=== PATIENT | female | born 1950 | race Caucasian/White ===

== ENCOUNTER 2021-04-15 17:09 | Emergency (ER) | payer MEDICARE, OTHER ==
--- NOTE | 2021-04-15 17:48 | ERPHSYRPT ---
- History of Present Illness Time Seen by Provider: 04/15/21 17:15 Source: patient, other Exam Limitations: no limitations Patient Subjective Stated Complaint: upper/mid back pain x 8 days Triage Nursing Assessment: pt to ED c/o upper/mid back pain onset last wednesday after recieving COVID booster. pt states her pain began after injection but she also was doing some work around the home which also could have contributed to her pain. rates 4/10 currently but reports it increases with movement and activities. ambulatory with steady gate per self. pt was at Dr Funes office and states she was walking and o2 decreased in office, which is why pcp sent her here. hx COPD but does not wear supplemental O2. Physician History: 71 years old female presented to the ER from primary care office with chief complaint of shoulder blade area pain and difficulty breathing for almost 1 week after receiving booster dose of COVID-19 vaccine. Patient reports she started to have bilateral upper arm/back pain which is more with activity and better with resting. Denies any anterior chest pain. Pain is aggravated with movement s of arms as well. Patient was earlier at PCP office and has oxygen saturation of 97% at resting and with ambulation dropped to 84%. She is currently satting around 99% at room air and has minimal upper back discomfort. Denies any history of pulmonary embolism or aortic aneurysm. Denies any history of coronary artery disease but does have history of COPD. No fever chills or cough reported. Timing/Duration: week(s) (1), intermittent, gradual onset, worse Activities at Onset: activity Severity of Dyspnea-Max: moderate Severity of Dyspnea-Current: none Possible Cause: unknown cause Modifying Factors: Improves With: rest. Worsens With: activity Associated Symptoms: chest pain/discomfort, tightness, No painful breathing, No productive cough Allergies/Adverse Reactions: No Known Drug Allergies Allergy (Verified 04/15/21 17:14) Home Medications: ALPRAZolam 1 MG [Xanax 1 mg] 1 mg PO Q6HPRN PRN 05/11/13 [History] Citalopram Hydrobromide 20 mg* [ceLEXa 20 MG] 20 mg PO DAILY 05/11/13 [History] Hydrocodone/APAP 10/325 mg [[place] 10/325 MG TableT] 1 tab PO Q6HPRN PRN 05/11/13 [History] Hx Tetanus, Diphtheria Vaccination/Date Given: No Hx Influenza Vaccination/Date Given: Yes Hx Pneumococcal Vaccination/Date Given: No Immunizations Up to Date: No Travel Risk - International Travel Have you traveled outside of the country in past 3 weeks: No - Coronavirus Screening Are you exhibiting any of the following symptoms?: No Close contact with a COVID-19 positive Pt in past 14-21 Days: No - Vaccine Status Have you recieved a Covid-19 vaccination: Yes 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: [employer] - Vaccination Dates Date of 2cond Vaccination (if applicable): AUGUST Comment: BOOSTER 1 WEEK AGO - Review of Systems Constitutional: No Symptoms Eyes: No Symptoms Ears, Nose, & Throat: No Symptoms Respiratory: Dyspnea Cardiac: Chest Pain Abdominal/Gastrointestinal: No Symptoms Genitourinary Symptoms: No Symptoms Musculoskeletal: Myalgias Skin: No Symptoms Neurological: No Symptoms Psychological: No Symptoms Endocrine: No Symptoms Hematologic/Lymphatic: No Symptoms Immunological/Allergic: No Symptoms - Past Medical History Pertinent Past Medical History: Yes Neurological History: No Pertinent History ENT History: No Pertinent History Cardiac History: No Pertinent History Respiratory History: COPD, Sleep Apnea Endocrine Medical History: No Pertinent History Musculoskeletal History: Other GI Medical History: No Pertinent History History: No Pertinent History Psycho-Social History: Anxiety, Depression Female Reproductive Disorders: No Pertinent History - Past Surgical History Past Surgical History: Yes Neuro Surgical History: No Pertinent History Cardiac: No Pertinent History Respiratory: No Pertinent History Gastrointestinal: No Pertinent History Genitourinary: No Pertinent History Musculoskeletal: No Pertinent History Female Surgical History: No Pertinent History Other Surgical History: abcess tooth lanced - Social History Smoking Status: Never smoker How long have you smoked: 6 months Exposure to second hand smoke: Yes Drug Use: none Patient Lives Alone: No - Female History Hx Now: No - Nursing Vital Signs Nursing Vital Signs: Initial Vital Signs Temperature 97.2 F 04/15/21 17:16 Pulse Rate 83 04/15/21 17:16 Respiratory Rate 18 04/15/21 17:16 Blood Pressure 158/76 04/15/21 17:16 O2 Sat by Pulse Oximetry 98 04/15/21 17:16 Pain Scale Pain Intensity 3 - Physical Exam General Appearance: no apparent distress, alert Eye Exam: PERRL/EOMI, eyes nml inspection Ears, Nose, Throat Exam: hearing grossly normal, normal ENT inspection Neck Exam: normal inspection, non-tender, supple, full range of motion Respiratory Exam: normal breath sounds, lungs clear Cardiovascular/Chest Exam: normal heart sounds, regular rate/rhythm, other (Upper chest back pain, reproducible with palpation more on the right side.) Abdominal/Gastrointestinal Exam: soft, normal bowel sounds, No tenderness Extremity Exam: non-tender, normal range of motion, normal inspection, normal capillary refill Neurologic Exam: alert, oriented x 3, cooperative Skin Exam: normal color, warm SpO2 Interpretation: normal SpO2: 98 O2 Delivery: Room Air - Course EKG Interpreted by Me: RATE (76), Sinus Rhythm, NORMAL AXIS, NORMAL INTERVALS, Non-specific ST Changes Ordered Tests: Active Orders 24 hr Category Date Time Status EKG-ER Only STAT Care 04/15/21 17:37 Active IV Insertion STAT Care 04/15/21 17:37 Active CHEST WITH CONTRAST [CT] Stat Exams 04/15/21 20:07 Taken CBC W DIFF Stat Lab 04/15/21 17:37 Completed CMP Stat Lab 04/15/21 18:56 Completed MAGNESIUM Stat Lab 04/15/21 17:37 Completed NT PRO BNP Stat Lab 04/15/21 17:37 Completed TROPONIN Q3H Lab 04/15/21 17:45 Completed TROPONIN Q3H Lab 04/15/21 20:20 Completed TROPONIN Q3H Lab 04/15/21 23:45 Ordered TROPONIN Q3H Lab 04/16/21 02:45 Ordered TROPONIN Q3H Lab 04/16/21 05:45 Ordered Medication Summary Discontinued Medications Generic Name Dose Route Start Last Admin Trade Name Freq PRN Reason Stop Dose Admin Hydromorphone HCl 0.5 mg 04/15/21 17:44 04/15/21 18:17 Hydromorphone 1 Mg/1ml Inj 1 Mg/Ml Syringe IV 04/15/21 17:45 Not Given STAT ONE Ketorolac Tromethamine 30 mg 04/15/21 18:18 04/15/21 18:20 Ketorolac Tromethamine 30 Mg/Ml Inj IV 04/15/21 18:19 30 mg STAT ONE Administration Ketorolac Tromethamine Confirm 04/15/21 18:19 Ketorolac Tromethamine 30 Mg/Ml Inj Administered 04/15/21 18:20 Dose 30 mg .ROUTE .STK-MED ONE Ondansetron HCl 4 mg 04/15/21 17:44 04/15/21 18:18 Ondansetron Hcl 4 Mg/2 Ml Vial IV 04/15/21 17:45 Not Given STAT ONE Lab/Rad Data: Laboratory Result Diagrams 04/15/21 17:37 04/15/21 18:56 Laboratory Results 04/15/21 04/15/21 04/15/21 Range/Units 20:20 18:56 17:45 WBC (4.0-10.5) K/mm3 RBC (4.1-5.4) M/mm3 Hgb (12.0-16.0) gm/dl Hct (35-47) % MCV (78-100) fl MCH (26-32) pg MCHC (32-36) g/dl RDW (11.5-14.0) % Plt Count (150-450) K/mm3 MPV (7.5-11.0) fl Gran % (36.0-66.0) % Eos # (Auto) (0-0.5) Absolute Lymphs (auto) (1.0-4.6) Absolute Monos (auto) (0.0-1.3) Lymphocytes % (24.0-44.0) % Monocytes % (0.0-12.0) % Eosinophils % (0.00-5.0) % Basophils % (0.0-0.4) % Absolute Granulocytes (1.4-6.9) Basophils # (0-0.4) Sodium 136 L (137-145) mmol/L Potassium 4.2 (3.5-5.1) mmol/L Chloride 99 (98-107) mmol/L Carbon Dioxide 26 (22-30) mmol/L Anion Gap 15.7 H (5-15) MEQ/L BUN 21 H (7-17) mg/dL Creatinine 0.78 (0.52-1.04) mg/dL Estimated GFR > 60.0 ML/MIN Glucose 86 (74-106) mg/dL Calcium 9.2 (8.4-10.2) mg/dL Magnesium (1.6-2.3) mg/dL Total Bilirubin 0.40 (0.2-1.3) mg/dL AST 41 H (14-36) U/L ALT 67 H (0-35) U/L Alkaline Phosphatase 115 (38-126) U/L Troponin I < 0.012 < 0.012 (0.000-0.034) ng/mL NT-Pro-B Natriuret Pep (0-900) pg/mL Serum Total Protein 7.5 (6.3-8.2) g/dL Albumin 4.6 (3.5-5.0) g/dL 04/15/21 04/15/21 Range/Units 17:37 17:37 WBC 6.0 (4.0-10.5) K/mm3 RBC 3.92 L (4.1-5.4) M/mm3 Hgb 12.4 (12.0-16.0) gm/dl Hct 39.4 (35-47) % MCV 100.5 H (78-100) fl MCH 31.6 (26-32) pg MCHC 31.5 L (32-36) g/dl RDW 12.9 (11.5-14.0) % Plt Count 274 (150-450) K/mm3 MPV 10.1 (7.5-11.0) fl Gran % 48.4 (36.0-66.0) % Eos # (Auto) 0.14 (0-0.5) Absolute Lymphs (auto) 2.32 (1.0-4.6) Absolute Monos (auto) 0.58 (0.0-1.3) Lymphocytes % 38.9 (24.0-44.0) % Monocytes % 9.7 (0.0-12.0) % Eosinophils % 2.3 (0.00-5.0) % Basophils % 0.7 (0.0-0.4) % Absolute Granulocytes 2.89 (1.4-6.9) Basophils # 0.04 (0-0.4) Sodium (137-145) mmol/L Potassium (3.5-5.1) mmol/L Chloride (98-107) mmol/L Carbon Dioxide (22-30) mmol/L Anion Gap (5-15) MEQ/L BUN (7-17) mg/dL Creatinine (0.52-1.04) mg/dL Estimated GFR ML/MIN Glucose (74-106) mg/dL Calcium (8.4-10.2) mg/dL Magnesium 2.2 (1.6-2.3) mg/dL Total Bilirubin (0.2-1.3) mg/dL AST (14-36) U/L ALT (0-35) U/L Alkaline Phosphatase (38-126) U/L Troponin I (0.000-0.034) ng/mL NT-Pro-B Natriuret Pep 34.3 (0-900) pg/mL Serum Total Protein (6.3-8.2) g/dL Albumin (3.5-5.0) g/dL - Progress Progress: improved Air Movement: good Progress Note: 04/15/21 21:06 71 years old is evaluated for shortness of breath/hypoxia at clinic with exertion and shoulder blade area pain. On presentation patient oxygen sa turation is around 99% without any tachypnea or tachycardia. EKG did not show any acute ST elevations. Negative troponins x2. I have obtained CTA chest which is negative for any acute cardiopulmonary findings. Patient does not have any pain after Toradol. Also did have some element of musculoskeletal with reproducibility on movements of upper extremity and palpation. I have made her walk in the ER without oxygen and her saturations stayed around 96%. I do not know the exact cause of her hypoxia at clinic. I have discussed with Dr. Mendes, reviewed work-up and she is recommending discharge with outpatient follow-up. I think it is reasonable and she is counseled about returning to ER if has any worsening. Blood Culture(s) Obtained: No Antibiotics given: No Counseled pt/family regarding: lab results, diagnosis, need for follow-up, rad results - Departure Departure Disposition: Home Clinical Impression: Pain, upper back Dyspnea Qualifiers: Dyspnea type: dyspnea on exertion Qualified Code(s): R06.00 - Dyspnea, unspecified Condition: Stable Critical Care Time: No Referrals: NANETTE OROZCO DO [Primary Care Provider] - (Call tomorrow for reevaluation) NAFISA BOYER [CONSULTING PHYSICIAN] - (Call tomorrow for reevaluation) Instructions: Shortness of Breath (Dyspnea) (DC), Angina (DC) Additional Instructions: Follow-up with your primary care physician for reevaluation and 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 Take Tylenol as needed. Return to ER for worsening chest pain or shortness of breath. Prescriptions: Albuterol 8 gm Mdi Hfa [Ventolin Hfa MDI] 8 gm IH Q4H #1 inh
[2021-04-15 17:58] LABS: Absolute Neutrophil Ct (ANC) 2.89 (1.4-6.9); BASOPHIL % 0.7 % (0.0-0.4); Basophil (Absolute #) 0.04 (0-0.4); Eosinophil % 2.3 % (0.00-5.0); Eosinophil (Absolute #) 0.14 (0-0.5); Hematocrit 39.4 % (35-47); Hemoglobin 12.4 gm/dl (12.0-16.0); Lymphocyte (Absolute #) 2.32 (1.0-4.6); Lymphocytes % 38.9 % (24.0-44.0); Mean Cell Volume 100.5 fl (78-100); Mean Corpuscular Hemoglobin 31.6 pg (26-32); Mean Corpuscular Hgb Concent. 31.5 g/dl (32-36); Mean Platelet Volume 10.1 fl (7.5-11.0); Monocyte (Absolute #) 0.58 (0.0-1.3); Monocytes % 9.7 % (0.0-12.0); Neutrophil % 48.4 % (36.0-66.0); Platelet Count 274 K/mm3 (150-450); Red Blood Count 3.92 M/mm3 (4.1-5.4); Red Cell Distribution Width 12.9 % (11.5-14.0)
[2021-04-15] MEDS: Hydromorphone 1 mg/ml Injection IV ONE (18:17)
[2021-04-15] MEDS: Zofran 4 MG/2 ML VIAL IV ONE (18:18)
[2021-04-15] MEDS ORDERED: TORAdol 30 mg Injection ONE (18:19)
[2021-04-15 18:20] LABS: MAGNESIUM 2.2 mg/dL (1.6-2.3); NT PRO BNP 34.3 pg/mL (0-900)
[2021-04-15] MEDS: TORAdol 30 mg Injection IV ONE (18:20)
[2021-04-15 19:05] LABS: ALBUMIN 4.6 g/dL (3.5-5.0); ALKALINE PHOSPHATASE 115 U/L (38-126); ANION GAP 15.7 MEQ/L (5-15); BLOOD UREA NITROGEN 21 mg/dL (7-17); CHLORIDE 99 mmol/L (98-107); Calcium 9.2 mg/dL (8.4-10.2); Carbon Dioxide 26 mmol/L (22-30); Creatinine 1 0.78 mg/dL (0.52-1.04); EST GLOMERULAR FILTRATION RATE > 60.0 ML/MIN; Glucose 86 mg/dL (74-106); Potassium 4.2 mmol/L (3.5-5.1); SGOT/AST 41 U/L (14-36); SGPT/ALT 67 U/L (0-35); SODIUM 136 mmol/L (137-145); Total Protein 7.5 g/dL (6.3-8.2)
[2021-04-15 19:45] VITALS: O2SAT 98
[2021-04-15 21:21] VITALS: BP 139/62; PULSE 76
--- NOTE | 2021-04-16 08:33 | XRAY ---
Indication: Back pain. Multiple contiguous axial images obtained through the chest using 80 cc Isovue 370 contrast and PE protocol. Comparison: None There is good opacification of the pulmonary arteries to include the lobar and segmental branches. No pulmonary embolus. Heart not enlarged. Aorta normal in course and caliber without aneurysm/dissection. No pathologic mediastinal/hilar lymphadenopathy. Small hiatal hernia. Lungs demonstrates mild bibasilar fibrosis/scarring. No suspicious pulmonary mass/nodule, infiltrate, or effusion. Bony thorax intact. Limited upper abdomen demonstrates a few bilateral renal cysts, largest right midpole measuring 2.9 cm. Impression: 1. Negative pulmonary embolus. Acute cardiopulmonary abnormalities. 2. Incidental small hiatal hernia and bilateral renal cysts.
== END 2021-04-15 21:29 | disposition home or self-care (01) ==
LOC: ED 17:09
DX: M54.6 Pain in thoracic spine (principal); R06.00 Dyspnea, unspecified
CPT/HCPCS: 36000; 36415; 71260; 80053; 83735; 83880; 84484; 85025; 93005; 96374; 99284; J1885